=== PATIENT | male | born 1975 | race Caucasian/White ===

== ENCOUNTER 2022-08-17 12:03 | Emergency (ER) | payer MEDICAID, SELFPAY ==
[2022-08-17 12:15] VITALS: BP 132/91; PULSE 88; RESP 18; TEMP 36.9; O2SAT 94
[2022-08-17] MEDS: Meclizine 25 MG TAB PO (14:20)
[2022-08-17] MEDS: Ibuprofen 600 MG TAB PO (14:20)
--- NOTE | 2022-08-17 14:53 | ED.GENADUL_ITS ---
Discharge Plan Disposition Patient Disposition: Home Condition: Stable Discharge Details Clinical Impression: Sensation of fullness in right ear, Vertigo Primary Care Provider: Alpa,Local ED Provider: Miki Robbins Home Meds and New Rx's Prescriptions: New meclizine 25 mg tablet 25 mg PO BID PRNQty: 14 0RF Continued propranolol 10 mg Tablet 20 mg PO BID PRN multivitamin Capsule 1 cap PO DAILY rosuvastatin [Crestor] 5 mg Tablet 5 mg PO HS metformin 1,000 mg Tablet Extended Release 24 Hr 1,000 mg PO HS Discharge Instructions Instructions: Vertigo (ED), Ear Infection (ED) Additional Instructions: Please take ibuprofen over the counter. Take 600mg by mouth every 6 hours as needed for pain. Please take meclizine as prescribed for dizziness. A COVID test was performed today and result is not yet available. Please maintain home isolation until result is available and negative. Please contact your primary care physician to arrange follow-up. Return to the ER immediately for any worsening or new concerning symptoms. Medical Decision Making 1500??47-year-old male here with right ear fullness and mild positional vertigo. No signs of central vertigo. HINTS negative. Suspect mild internal ear inflammation. Plan to treat with ibuprofen and meclizine and reassess. 1534 -- Patient was reassessed and noted significant improvement. Ambulating without any difficulty. HPI General Mode of arrival: ambulatory . Date/Time Provider Initiated Documentation: 08/17/22 14:12 . Limitations to Documentation: no limitations . Information obtained by: patient . HPI Narrative: 47-year-old male presents with chief complaint of dizziness. Patient notes he woke up this morning with discomfort described as fullness in his right ear and mild headache. He was worried that he might have COVID and did a home test that was negative. He states dizziness is mild and worse with movement. He thinks it is related to inner ear fullness. No associated visual change, numbness or tingling. No fever. Related Data Home Medications Medication Instructions Recorded Confirmed meclizine 25 mg tablet 25 mg PO BID PRN #14 tabs 08/17/22 metformin 1,000 mg tablet,extended 1,000 mg PO HS 08/17/22 08/17/22 release 24hr multivitamin 1 cap PO DAILY 08/17/22 08/17/22 propranolol 10 mg tablet 20 mg PO BID PRN 08/17/22 08/17/22 rosuvastatin 5 mg tablet (Crestor) 5 mg PO HS 08/17/22 08/17/22 Previous Rx's Medication Instructions Recorded meclizine 25 mg tablet 25 mg PO BID PRN #14 tabs 08/17/22 Allergies Allergy/AdvReac Type Severity Reaction Status Date / Time No Known Allergies Allergy Unverified 08/17/22 12:18 General Stated Complaint: Dizzy/Sync JEMAL: 3 Review of Systems All systems reviewed & are unremarkable except as noted in HPI and below Constitutional Constitutional: Denies fever(s) ENT Ears, Nose, Mouth, and Throat: Reports as per HPI Respiratory Respiratory: Denies cough PFSH All Active Problems (Updated 08/17/22 @ 15:31 by Miki Robbins MD) Sensation of fullness in right ear (Acute) Vertigo (Acute) Social History Smoking/Tobacco Use Status: Never Smoking risk assessment performed?: Yes Alcohol Intake: never Substance use type: does not use Do you feel safe at home: Yes Do you feel safe in your relationship?: Yes Exam Const General: cooperative and no acute distress HENMT Head: normocephalic and atraumatic Ears: TM abnormal other (Right TM is full ng with trace effusion, no erythema; left TM with loss of landmarks but no effusion or erythema) Mouth: moist mucous membranes Eyes EOM: EOM intact bilaterally Neck Neck: trachea midline and supple Resp Auscultation: clear to auscultation bilaterally, no rales, no rhonchi and no wheezes Cardio Rate: regular rate and not tachycardic Rhythm: regular rhythm GI Palpation: soft, not firm, no guarding, no masses, not rigid and nontender Neuro General: patient alert, patient awake and tone normal Cranial Nerves: CN's II-XI intact bilaterally Cognition: normal cognition Speech: speech normal Motor: strength 5/5 throughout Sensory Exam: no sensory deficits noted Coordination: [id number] test normal, Romberg test normal, Does not sway with eyes open and other (Rapid alternating movements were normal) Extrem General: no edema Psych Appearance: grossly normal Mental Status: mental status grossly normal Course Vital Signs Vital signs: Vital Signs Temperature 36.9 C 08/17/22 12:15 Pulse 88 08/17/22 12:15 Respiratory Rate 18 08/17/22 12:15 Blood Pressure 132/91 H 08/17/22 12:15 Pulse Oximetry 94 08/17/22 12:15 Temperature 36.9 C 08/17/22 12:15 Temperature Source Temporal Artery Scan 08/17/22 12:15 Pulse 88 08/17/22 12:15 Respiratory Rate 18 08/17/22 12:15 Respiratory Effort 08/17/22 12:21 Blood Pressure 132/91 H 08/17/22 12:15 Blood Pressure Position Sitting 08/17/22 12:15 Pulse Oximetry 94 08/17/22 12:15 Oxygen Delivery Method Room Air 08/17/22 12:15 Oxygen Flow Rate 0 08/17/22 12:15 Pain Level 3 08/17/22 12:15
[2022-08-17 16:03] LABS: Source Nasal/Nares
[2022-08-17 16:05] LABS: COVID-19 PCR Negative (Negative)
== END 2022-08-17 15:44 | disposition home or self-care (01) ==
PROVIDERS: Emergency Provider Student in an Organized Health Care Education/Training Program
DX: R42 Dizziness and giddiness (principal); H93.8X1 Other specified disorders of right ear; Z20.822 Contact with and (suspected) exposure to COVID-19
CPT/HCPCS: 36416; 82962; 87635; 99283; U0003; 99284